=== PATIENT | female | born 1985 | race Caucasian/White ===

== ENCOUNTER 2020-11-29 16:01 | Emergency (ER) | payer OTHER ==
[~2020-11-29] VITALS: Ht 152.4 cm; Wt 52.6 kg
[2020-11-30] MEDS ORDERED: ACETAMINOPHEN500 M1 (00:32)
== END 2020-11-30 14:43 | disposition home or self-care (01) ==
LOC: ER 16:01
DX: O26.891 Other specified pregnancy related conditions, first trimester (principal); K59.09 Other constipation; D72.829 Elevated white blood cell count, unspecified; O44.01 Complete placenta previa NOS or without hemorrhage, first trimester; O36.80X1 Pregnancy with inconclusive fetal viability, fetus 1; Z3A.13 13 weeks gestation of pregnancy; Z03.818 Encounter for observation for suspected exposure to other biological agents ruled out
CPT/HCPCS: 72195; 74181

== ENCOUNTER 2021-05-28 08:28 | Inpatient (IN) | payer OTHER ==
[~2021-05-28] VITALS: Ht 154.9 cm; Wt 3.2 kg
[~2021-05-28 08:28] MED LIST: ACETAMINOPHEN500 M1
[2021-05-28] MEDS ORDERED: PRENATAL 19 CH1 EAC1 PO (09:32)
[2021-05-28] MEDS ORDERED: ADULT LOW DOSE81 M1 PO (09:33)
[2021-05-30] MEDS ORDERED: SURFAK240 M1 PO (09:49)
[2021-05-30] MEDS ORDERED: PERCOCET 5-3251 EACH PO (09:49)
== END 2021-05-31 11:14 | disposition home or self-care (01) | DRG 785 ==
LOC: SURG-SUITE 08:28 → LDR 08:28 → SURG-SUITE 08:28 → O/R 13:30 → SURG-SUITE 14:41
PROVIDERS: ADMIT Specialist; ATTEND Specialist
PROC: 0UB70ZZ Excision of Bilateral Fallopian Tubes, Open Approach (ICD-10-PCS; 2021-05-28)
PROC: 4A1HXFZ Monitoring of Products of Conception, Cardiac Rhythm, External Approach (ICD-10-PCS; 2021-05-28)
PROC: 10D00Z1 Extraction of Products of Conception, Low, Open Approach (ICD-10-PCS; principal; 2021-05-28 12:00)
DX: O34.211 Maternal care for low transverse scar from previous cesarean delivery (principal); Z30.2 Encounter for sterilization; Z37.0 Single live birth; Z3A.39 39 weeks gestation of pregnancy